=== PATIENT | female | born 1960 | race Caucasian/White ===

== ENCOUNTER 2017-02-19 09:40 | Day surgery (SDC) | payer MEDICARE ==
[~2017-02-19 09:40] MED LIST: ACETAMINOPHEN 1,000 MG/100 ML BTL IV ONE; CEFAZOLIN 2 Gram 2 GM/50 ML BAG IVPB ONE
[2017-02-19] MEDS ORDERED: PROPOFOL 10 MG/ML VIAL IV ONE (09:41)
[2017-02-19] MEDS ORDERED: SEVOFLURANE 250 ML INH ONE (09:41)
[2017-02-19] MEDS ORDERED: ACETAMINOPHEN W/ CODEINE 300MG/30MG TABLET PO ONE (09:41)
[2017-02-19] MEDS ORDERED: LIDOCAINE 2% MDV (20MG/ML) 20ML VIAL IV ONE (09:41)
[2017-02-19] MEDS ORDERED: BUPIVACAINE 0.75% W/EPI MPF 30ML VIAL IVP ONE (09:41)
[2017-02-19] MEDS ORDERED: KETOROLAC 30 MG/ML VIAL IVP ONE (09:41)
[2017-02-19] MEDS ORDERED: CEFAZOLIN 2 Gram 2 GM/50 ML BAG IVPB ONE (11:15)
[2017-02-19] MEDS ORDERED: FAMOTIDINE 20MG TABLET PO ONE (11:15)
[2017-02-19] MEDS ORDERED: ACETAMINOPHEN 1,000 MG/100 ML BTL IV ONE (11:15)
[2017-02-19] MEDS ORDERED: MECLIZINE 25 MG TABLET PO ONE (11:15)
[2017-02-19] MEDS ORDERED: METOCLOPRAMIDE 10 MG TABLET PO ONE (11:15)
--- NOTE | 2017-02-19 20:43 | Operative Note ---
DATE: 02/19/2017 PREOPERATIVE DIAGNOSIS: PAINFUL RETAINED ORTHOPEDIC HARDWARE RIGHT ANKLE. POSTOPERATIVE DIAGNOSIS: PAINFUL RETAINED ORTHOPEDIC HARDWARE RIGHT ANKLE. PROCEDURE: REMOVAL OF DEEP BURIED HARDWARE RIGHT LATERAL ANKLE. STAFF SURGEON: VIRIDIANA CASH M.D. ANESTHESIA: GENERAL. PREPARATION: CHLORAPREP. INDIVIDUAL CONSIDERATIONS: NONE. PROCEDURE: The patient was taken to the Operating Room and placed supine on the operating table. She had a successful induction with general anesthetic. Her right lower extremity was prepped and draped in the usual fashion. The patient's previous incision was used. I infiltrated the skin with 0.75% Marcaine with Epinephrine. Sharp dissection carried down through skin and subcutaneous tissue. Sharp dissection carried down directly over the plate and a periosteal elevator was used to get to the soft tissue over the top of the plate. The patient had roughly five screws and a syndesmotic button. These were all removed and the plate was removed. The screw holes were debrided with a rongeur. The remaining screw was buried in the bone and not bothering her, so I left it alone. After irrigation, the subcu was closed with 2-0 Plus Vicryl, the skin was closed with meera, and a sterile Bulkee compressive dressing was applied. The patient tolerated the procedure well. Needle and sponge counts were correct. Estimated blood loss was minimal and she was taken back to Recovery in good condition. There were no complications. JOB NUMBER: [id number] MTDD
== END 2017-02-19 13:05 | disposition home or self-care (01) ==
LOC: SUR 09:40
PROVIDERS: ATTEND Orthopaedic Surgery
DX: T84.84XA Pain due to internal orthopedic prosthetic devices, implants and grafts, initial encounter (principal); Z72.0 Tobacco use
CPT/HCPCS: 20680; 01480; J1885; J0690; J3490